=== PATIENT | male | born 1970 | race Caucasian/White ===

== ENCOUNTER 2019-03-26 11:56 | Day surgery (SDC) | payer OTHER ==
[2019-03-26] MEDS ORDERED: LIDOCAINE 2% (SDV) 5 ML INJ (16:01)
[2019-03-26] MEDS ORDERED: PROPOFOL 20 ML (16:01)
== END 2019-03-26 20:21 | disposition home or self-care (01) ==
LOC: GIL 11:56
DX: Z12.11 Encounter for screening for malignant neoplasm of colon (principal); D12.4 Benign neoplasm of descending colon
CPT/HCPCS: 45380; 88305